=== PATIENT | male | born 1955 | race Asian ===

== ENCOUNTER 2016-10-31 11:37 | Emergency (ER) | payer MEDICAID ==
[~2016-10-31] VITALS: Ht 167.6 cm; Wt 68.0 kg
[2016-10-31 19:38] VITALS: BP 120/81
== END 2016-10-31 19:40 | disposition home or self-care (01) ==
LOC: ER 13:15
DX: S82.831A Other fracture of upper and lower end of right fibula, initial encounter for closed fracture (principal); E78.00 Pure hypercholesterolemia, unspecified; W01.0XXA Fall on same level from slipping, tripping and stumbling without subsequent striking against object, initial encounter; Y93.89 Activity, other specified; Y92.018 Other place in single-family (private) house as the place of occurrence of the external cause
CPT/HCPCS: 29505; 73610; 73630; 99284